=== PATIENT | male | born 1990 | race Caucasian/White ===

== ENCOUNTER 2017-04-06 12:39 | Emergency (ER) | payer MEDICAID ==
[~2017-04-06] VITALS: Ht 175.3 cm; Wt 89.1 kg
[~2017-04-06 12:39] MED LIST: RANI-276 PO; TAMS0.4C2 PO
[2017-04-06 13:22] VITALS: BP 123/81
[2017-04-07] MEDS ORDERED: AZIT500T5 PO (23:08)
== END 2017-04-06 14:06 | disposition home or self-care (01) ==
LOC: ED 13:56
DX: B96.89 Other specified bacterial agents as the cause of diseases classified elsewhere (principal); J20.8 Acute bronchitis due to other specified organisms; F17.210 Nicotine dependence, cigarettes, uncomplicated
CPT/HCPCS: 99283

== ENCOUNTER 2017-04-07 21:34 | Emergency (ER) | payer MEDICAID ==
[~2017-04-07] VITALS: Ht 175.3 cm; Wt 89.9 kg
[2017-04-07 22:18] LABS: MICROSCOPIC NOT IND
[2017-04-07 22:20] LABS: CULTURE INDICATED? NO
[2017-04-07] MEDS ORDERED: ONDANSETRON 2MG/ML, 2ML ONE (22:48)
[2017-04-07] MEDS ORDERED: ONDANSETRON 2MG/ML, 2ML IVPush ONE (23:00)
[2017-04-07] MEDS ORDERED: SODIUM CHLORIDE FLUSH 10ML SYR IVF ONE (23:00)
[2017-04-07] MEDS ORDERED: SODIUM CHLORIDE 0.9% 1,000ML IVBOLUS ONE (23:00)
[2017-04-07 23:06] LABS: ALANINE AMINOTRANSFERASE 27 U/L (12-78); ALBUMIN 3.8 g/dL (3.4-5.0); ANION GAP 9 mmol/L (5-15); CALCIUM 8.5 mg/dL (8.5-10.1); CHLORIDE 107 mmol/L (98-107); MEAN CORPUSCULAR HEMOGLOBIN 30.5 pg (27.5-34.5); MEAN CORPUSCULAR HGB CONC 33.8 g/dL (33.2-36.2); MEAN CORPUSCULAR VOLUME 90.4 fL (81-97); MEAN PLATELET VOLUME 8.8 fL (7.4-10.4); PLATELET COUNT 235 x10^3/uL (130-400); RED BLOOD COUNT 5.22 x10^6/uL (4.38-5.82); RED CELL DISTRIBUTION WIDTH 12.7 % (9.4-14.8)
[2017-04-07] MEDS ORDERED: AZIT500T5 PO (23:08)
[2017-04-07 23:09] LABS: ALKALINE PHOSPHATASE 68 U/L (45-117); BILIRUBIN,TOTAL 0.8 mg/dL (0.2-1.0); CREATININE 0.93 mg/dL (0.7-1.3); TOTAL PROTEIN 7.4 g/dL (6.4-8.2)
[2017-04-07 23:31] LABS: BASOPHILS # (AUTO) 0.04 x10^3/uL (0-0.1); BASOPHILS % (AUTO) 1 % (0-1); EOSINOPHILS # (AUTO) 0.18 x10^3/uL (0-0.4); EOSINOPHILS % (AUTO) 2 % (1-7); LYMPHOCYTES # (AUTO) 2.46 x10^3/uL (1-3.4); LYMPHOCYTES % (AUTO) 31 % (22-44); MD SCAN; MONOCYTES # (AUTO) 0.68 x10^3/uL (0.2-0.8); MONOCYTES % (AUTO) 9 % (2-9); NEUTROPHILS # (AUTO) 4.52 x10^3/uL (1.8-6.8); NEUTROPHILS % (AUTO) 57 % (42-75)
[2017-04-08 00:04] VITALS: BP 133/83
== END 2017-04-08 00:08 | disposition home or self-care (01) ==
LOC: ED 22:22
DX: R11.2 Nausea with vomiting, unspecified (principal)
CPT/HCPCS: 36415; 80053; 81003; 83690; 85025; 96361; 96374; 99284; J2405; J7030

== ENCOUNTER 2019-10-09 19:18 | Emergency (ER) | payer MEDICAID ==
[~2019-10-09] VITALS: Ht 175.3 cm; Wt 94.0 kg
[~2019-10-09 19:18] MED LIST changes: +AZIT500T10 PO; -RANI-276 PO; +RANI-460 PO
--- NOTE | 2019-10-09 19:27 | NUR ---
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
--- NOTE | 2019-10-09 20:40 | NUR ---
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 TO ROOM FROM LOBBY AT THIS TIME.
--- NOTE | 2019-10-09 21:13 | NUR ---
ERP TO BEDSIDE.
[2019-10-09 21:40] VITALS: BP 127/92
--- NOTE | 2019-10-09 21:41 | NUR ---
PT DRESSED SELF FOR D/C, PACING ROOM WAITING FOR PAPERWORK SO HE COULD LEAVE.
== END 2019-10-09 21:42 | disposition home or self-care (01) ==
LOC: ED 21:25
DX: R05 Cough (principal); R11.10 Vomiting, unspecified; R94.31 Abnormal electrocardiogram [ECG] [EKG]
CPT/HCPCS: 71046; 93005; 99283